=== PATIENT | female | born 1960 | race Two or more races ===

== ENCOUNTER 2017-06-07 21:16 | Emergency (ER) | payer SELFPAY ==
[~2017-06-07] VITALS: Ht 149.9 cm; Wt 65.8 kg
[2017-06-07] MEDS ORDERED: fentaNYL PF VIAL 100 MCG/2 ML VIAL IV PRN (21:30)
--- NOTE | 2017-06-07 21:34 | PHYS DOC ---
Past Medical History Past Medical History: Diabetes-Type II Past Surgical History: Cholecystectomy Additional Past Surgical Histo: Bilat hip surgery;hernia Additional Information: non smoker Social History Narrative: Lives with sister; italian speaking Adult General Chief Complaint Chief Complaint: MULTIPLE TRAUMA/FALL HPI HPI Patient is a 56 year old female who presents with falls. She normally uses a walker (childhood injury) and lost her balance and fell in the bathroom on Sunday. She then fell again on Sun and Today. She has bilateral hip pain, left knee and left ankle pain. She cannot bear weight. She arrives by private vehicle. She denies striking her head, no LOC, No neck or back pain. Her left leg is pain and swollen now. No wounds. Review of Systems Review of Systems Constitutional: Denies fever or chills Eyes: Denies change in visual acuity, redness, or eye pain HENT: Denies nasal congestion or sore throat Respiratory: Denies cough or shortness of breath Cardiovascular: No chest pain GI: Denies abdominal pain, nausea, vomiting, bloody stools or diarrhea : Denies dysuria or hematuria Musculoskeletal: Denies back pain; Multiple joint pains Integument: Denies rash or skin lesions; Neurologic: Denies headache, focal weakness or sensory changes; no syncope Current Medications Current Medications Current Medications Medications (Trade) Dose Ordered Sig/Nano Start Time Stop Time Status Last Admin Dose Admin Fentanyl Citrate (Fentanyl 2ml Vial) 50 mcg PRN Q15MIN PRN 06/07/17 21:30 06/08/17 21:29 06/07/17 22:08 50 MCG Sodium Chloride 1,000 ml @ 100 mls/hr Q10H 06/07/17 22:30 06/08/17 08:29 06/07/17 22:20 100 MLS/HR Allergies Allergies Allergies Coded Allergies Type Severity Reaction Last Updated Verified No Known Drug Allergies 06/07/17 No Physical Exam Physical Exam Constitutional: Well developed, well nourished, no acute distress, non-toxic appearance. HENT: Normocephalic, atraumatic, bilateral external ears normal, oropharynx moist, no oral exudates, nose normal. Eyes: PERRLA, EOMI, conjunctiva normal, no discharge. Neck: Normal range of motion, no tenderness, supple, no stridor. Cardiovascular:Heart rate regular rhythm, no murmur Lungs & Thorax: Bilateral breath sounds clear to auscultation Abdomen: Bowel sounds normal, soft, no tenderness, no masses, no pulsatile masses. Skin: Warm, dry, no erythema, no rash. Ecchymosis noted to left knee and left ankle. Back: No tenderness, no CVA tenderness. Extremities: Tender bilateral hips; left knee and left ankle to any palpation or ROM. Swelling and ecchymosis to left knee and left ankle. NEURO: alert and oriented; normal sensation; normal motor. Current Patient Data Vital Signs Vital Signs Date Time Temp Pulse Resp B/P (MAP) Pulse Ox O2 Delivery O2 Flow Rate FiO2 06/07/17 22:13 90 18 148/74 (98) 98 Room Air 06/07/17 21:23 98.6 98.6 Lab Values Laboratory Tests Test 06/07/17 23:00 White Blood Count 9.0 x10^3/uL (4.0-11.0) Red Blood Count 4.39 x10^6/uL (3.50-5.40) Hemoglobin 12.4 g/dL (12.0-15.5) Hematocrit 37.5 % (36.0-47.0) Mean Corpuscular Volume 85 fL (79-100) Mean Corpuscular Hemoglobin 28 pg (25-35) Mean Corpuscular Hemoglobin Concent 33 g/dL (31-37) Red Cell Distribution Width 14.7 % (11.5-14.5) H Platelet Count 327 x10^3/uL (140-400) Neutrophils (%) (Auto) 80 % (31-73) H Lymphocytes (%) (Auto) 10 % (24-48) L Monocytes (%) (Auto) 9 % (0-9) Eosinophils (%) (Auto) 1 % (0-3) Basophils (%) (Auto) 0 % (0-3) Neutrophils # (Auto) 7.2 x10^3uL (1.8-7.7) Lymphocytes # (Auto) 0.9 x10^3/uL (1.0-4.8) L Monocytes # (Auto) 0.8 x10^3/uL (0.0-1.1) Eosinophils # (Auto) 0.0 x10^3/uL (0.0-0.7) Basophils # (Auto) 0.0 x10^3/uL (0.0-0.2) Prothrombin Time 12.7 SEC (11.7-14.0) Prothrombin Time INR 1.0 (0.8-1.1) Sodium Level 139 mmol/L (136-145) Potassium Level 3.9 mmol/L (3.5-5.1) Chloride Level 102 mmol/L (98-107) Carbon Dioxide Level 27 mmol/L (21-32) Anion Gap 10 (6-14) Blood Urea Nitrogen 14 mg/dL (7-20) Creatinine 0.5 mg/dL (0.6-1.0) L Estimated GFR (Cockcroft-Gault) 126.7 Glucose Level 209 mg/dL (70-99) H Calcium Level 8.9 mg/dL (8.5-10.1) Total Bilirubin 0.4 mg/dL (0.2-1.0) Direct Bilirubin 0.1 mg/dL (0.0-0.2) Aspartate Amino Transferase (AST) 26 U/L (15-37) Alanine Aminotransferase (ALT) 38 U/L (14-59) Alkaline Phosphatase 140 U/L (46-116) H Creatine Kinase 222 U/L (26-192) H Troponin I Quantitative < 0.017 ng/mL (0.000-0.055) Total Protein 7.1 g/dL (6.4-8.2) Albumin 3.3 g/dL (3.4-5.0) L Laboratory Tests 06/07/17 23:00 Laboratory Tests 06/07/17 23:00 EKG EKG EKG interpreted by myself at 2125PM; NSR, rate 93, no acute ST changes, no STEMI Radiology/Procedures Radiology/Procedures Pelvis: interpreted by myself at 2225 PM: bilateral prox femur screws; no pelvic fracture Left Hip: screw in place; no fracture Right Hip:screw in place; no fracture Left Knee: no fracture (severe DJD) Left ankle: no fracture (severe DJD) Impressions: [facility] [address] [place] [address] IMAGING REPORT Signed PATIENT: JOANNE LOOMIS ACCOUNT: [id number] : 1960 LOCATION: ER AGE: 56 SEX: F EXAM STATUS: REG ER ORD. PHYSICIAN: RONI GONZÁLES MD REASON: swelling and pain; non weight bearing PROCEDURE: VENOUS LOWER EXTREMITY LEFT Left lower extremity venous doppler ultrasound History: Left lower extremity swelling, multiple falls Comparison: None Findings: Multiple grayscale, color, and duplex spectral analysis sonographic images were acquired of the left lower extremity veins to evaluate for the presence of DVT. There is normal phasicity. Normal compression, color-flow, and augmentation is demonstrated from the left common femoral to the popliteal veins. There is normal color flow of the proximal greater saphenous and profunda femoris veins. There is normal color flow of segments of the calf veins. Impression: 1. There is no evidence of deep venous thrombosis from the left common femoral to popliteal veins. Electronically signed by: Ana Santa MD (06/07/2017 11:11 PM) [facility] DICTATED and SIGNED BY: ANA SANTA MD DATE: 06/07/172308 CC: RONI GONZÁLES MD; NO PCP ~ Course & Med Decision Making Course & Med Decision Making Pertinent Labs and Imaging studies reviewed. (See chart for details) Evaluated patient upon arrival. No evidence of acute metabolic/cardiac or neuro event precipitating fall. blood sent and xrays ordered. At 2225 PM: xrays with no acute fracture. Will check venous doppler to r/o DVT. AT 2335 PM: US NEG for DVT. Lab unremarkable. Home w family. Dragon Disclaimer Ramila Disclaimer This electronic medical record was generated, in whole or in part, using a voice recognition dictation system. Departure Departure Impression: Primary Impression: Fall Additional Impressions: Left ankle sprain Left knee sprain Disposition: HOME, SELF-CARE Condition: STABLE Patient Instructions: Ankle Sprain, Fall Prevention and Home Safety, Knee Sprain Scripts Miconazole Nitrate (MONISTAT 7) 45 Gm Cream.appl 45 GM VG BID for 7 Days, #14 EACH Prov: RONI GONZÁLES MD 06/07/17 Problem Qualifiers Primary Impression: Fall Encounter type: initial encounter Qualified Codes: W19.XXXA - Unspecified fall, initial encounter Additional Impressions: Left ankle sprain Encounter type: initial encounter Involved ligament of ankle: unspecified ligament Qualified Codes: S93.402A - Sprain of unspecified ligament of left ankle, initial encounter Left knee sprain Encounter type: initial encounter Involved ligament of knee: unspecified ligament Qualified Codes: S83.92XA - Sprain of unspecified site of left knee, initial encounter RONI GONZÁLES MD Jun 07, 2017 21:34
[2017-06-07] MEDS ORDERED: IV NORMAL SALINE 1000ML BAG 1,000 ML IV SCH (22:30)
[2017-06-07 23:12] LABS: BASO % 0 % (0-3); EOS % 1 % (0-3); HEMATOCRIT 37.5 % (36.0-47.0); HEMOGLOBIN 12.4 g/dL (12.0-15.5); LYMPH # 0.9 x10^3/uL (1.0-4.8); LYMPH % 10 % (24-48); MEAN CORPUSCULAR HEMOGLOBIN 28 pg (25-35); MEAN CORPUSCULAR HGB CONC 33 g/dL (31-37); MEAN CORPUSCULAR VOLUME 85 fL (79-100); MONO % 9 % (0-9); NEUT % 80 % (31-73); PLATELET COUNT 327 x10^3/uL (140-400); RED BLOOD COUNT 4.39 x10^6/uL (3.50-5.40); RED CELL DISTRIBUTION WIDTH 14.7 % (11.5-14.5)
--- NOTE | 2017-06-07 23:14 | RAD ---
Left lower extremity venous doppler ultrasound History: Left lower extremity swelling, multiple falls Comparison: None Findings: Multiple grayscale, color, and duplex spectral analysis sonographic images were acquired of the left lower extremity veins to evaluate for the presence of DVT. There is normal phasicity. Normal compression, color-flow, and augmentation is demonstrated from the left common femoral to the popliteal veins. There is normal color flow of the proximal greater saphenous and profunda femoris veins. There is normal color flow of segments of the calf veins. Impression: 1. There is no evidence of deep venous thrombosis from the left common femoral to popliteal veins. Electronically signed by: Davy Ling MD (06/07/2017 11:11 PM) [facility]
[2017-06-07 23:21] LABS: PROTHROMBIN TIME PATIENT 12.7 SEC (11.7-14.0)
[2017-06-07 23:23] LABS: CALCIUM 8.9 mg/dL (8.5-10.1); CREATININE 0.5 mg/dL (0.6-1.0); GFR 126.7; POTASSIUM 3.9 mmol/L (3.5-5.1)
[2017-06-07 23:29] LABS: ALBUMIN 3.3 g/dL (3.4-5.0); DIRECT BILIRUBIN 0.1 mg/dL (0.0-0.2); TOTAL BILIRUBIN 0.4 mg/dL (0.2-1.0); TOTAL PROTEIN 7.1 g/dL (6.4-8.2)
[2017-06-07] MEDS ORDERED: MICO45CR41 VG (23:41)
[2017-06-07 23:45] VITALS: BP 145/73
--- NOTE | 2017-06-08 06:20 | EKG ---
[facility] [address] [place] [address] Test Date: 2017-06-07 Test Time: 21:25:53 Pat Name: JOANNE LOOMIS Department: Room: Gender: F [employer] Operator: : 1960 Requested By: RONI GONZÁLES Order Number: [id number] Reading MD: Jade Nixon Measurements Intervals [place] Rate: 93 P: 27 OR: 156 QRS: 16 QRSD: 82 T: 14 QT: 338 QTc: 423 Interpretive Statements SINUS RHYTHM NORMAL ECG Electronically Signed On 06-09-2017 16:13:51 CDT by Jade Nixon
--- NOTE | 2017-06-08 07:33 | RAD ---
Chest radiograph 06/07/2017 at 2157 hours Indication: Follow-up on left side on knee and ankle. Anterior chest and hip pain. Comparison: Chest radiograph 10/24/2011 Technique: Single supine frontal view of the chest is provided. Findings: Cardiomediastinal silhouette is within normal limits. No pleural effusions or pulmonary vascular congestion. Supine technique limits evaluation for pneumothorax. The lungs are clear. No definite osseous abnormality is identified. Impression: No acute cardiopulmonary process.
--- NOTE | 2017-06-08 07:47 | RAD ---
Bilateral hips, left knee and left ankle radiograph 06/07/2017 at 2148 hours Indication: Fall with swelling of the knee and ankle. Hip pain. Comparison: Hip radiographs 10/24/2011 Technique: AP view of the pelvis and 2 dedicated views of each hip are provided. 3 views of the left knee and 3 views of the left ankle are provided. Findings: Pelvis and hips: There is demineralization of the visualized osseous structures. Mild degenerative changes are noted in the lower lumbar spine and sacroiliac joints. Phleboliths are identified in the pelvis. There is no acute fracture or dislocation involving the pelvis. Dynamic compression screws are identified in the hips bilaterally for fixation of prior intertrochanteric fractures. There is no periprosthetic lucency. No periprosthetic fracture is identified. Hip joints appear symmetric without significant joint space narrowing or osteophytosis. Left knee: There is no acute fracture or dislocation. There is tricompartmental joint space narrowing and osteophytosis, worse in the lateral knee joint compartment. No significant knee joint effusion is present. No suspicious osseous lesion is identified. Left ankle: There is diffuse osteopenia. There is no acute fracture or dislocation. The tibial plafond and talar dome are intact. Ankle mortise is congruent. Calcaneus is intact. Mild soft tissue swelling is noted about the ankle. Impression: 1. Postoperative changes from dynamic compression screw fixation of bilateral intertrochanteric fractures without evidence for hardware failure. No periprosthetic fracture is identified. 2. Moderate degenerative changes of the left knee, worse in the lateral knee joint compartment. This appearance may be seen in the setting of rheumatoid arthritis or osteoarthrosis. 3. No acute fracture or dislocation involving the ankle. 4. Diffuse osteopenia.
== END 2017-06-08 00:08 | disposition home or self-care (01) ==
LOC: ER 21:16
DX: S93.402A Sprain of unspecified ligament of left ankle, initial encounter (principal); S83.92XA Sprain of unspecified site of left knee, initial encounter; M25.552 Pain in left hip; M25.551 Pain in right hip; E11.9 Type 2 diabetes mellitus without complications; W18.39XA Other fall on same level, initial encounter; Y93.89 Activity, other specified; Y92.89 Other specified places as the place of occurrence of the external cause; Y99.8 Other external cause status
CPT/HCPCS: 29515; 36415; 71010; 73521; 73562; 73610; 80048; 80076; 82550; 83880; 84484; 85025; 85610; 93005; 93971; 96361; 96374; 99285; J3010; J7030